=== PATIENT | male | born 1950 | race Caucasian/White ===

== ENCOUNTER 2018-12-19 08:41 | Inpatient (IN) | payer MEDICARE, OTHER ==
[2018-12-17 09:02] LABS: BASOPHILS # (AUTO) 0.1 X10'3 (0-0.2); BASOPHILS % (AUTO) 0.8 % (0-1); EOSINOPHILS # (AUTO) 0.1 X10'3 (0-0.9); HEMATOCRIT 43.9 % (42.0-52.0); LYMPHOCYTES # (AUTO) 1.8 X10'3 (1.1-4.8); LYMPHOCYTES % (AUTO) 20.3 % (21-51); MEAN CORPUSCULAR HEMOGLOBIN 30.3 PG (27.0-31.0); MEAN CORPUSCULAR HGB CONC 34.1 g/dL (33.0-36.5); MEAN CORPUSCULAR VOLUME 88.8 FL (78-98); MEAN PLATELET VOLUME 10.8 FL (7.4-10.4); MONOCYTES # (AUTO) 0.6 X10'3 (0-0.9); MONOCYTES % (AUTO) 6.5 % (2-12); NEUTROPHILS # (AUTO) 6.4 X10'3 (1.8-7.7); NEUTROPHILS % (AUTO) 71.4 % (42-75); PLATELET COUNT 204 X10'3 (140-440); RED BLOOD COUNT 4.94 X10'6 (4.70-6.10); RED CELL DISTRIBUTION WIDTH 14.3 % (11.5-14.5)
[2018-12-17 09:16] LABS: ALANINE AMINOTRANSFERASE 33 U/L (12-78); ALBUMIN 3.7 G/DL (3.4-5.0); ALBUMIN/GLOBULIN RATIO 0.9 (1.1-1.5); ALKALINE PHOSPHATASE 103 IU/L (46-116); ANION GAP 5 (8-16); ASPARTATE AMINO TRANSFERASE 15 U/L (10-37); BILIRUBIN,TOTAL 0.7 MG/DL (0.1-1.0); BLOOD UREA NITROGEN 11 MG/DL (7-18); BUN/CREATININE RATIO 15.1 (5.4-32.0); CALCIUM 8.8 MG/DL (8.5-10.1); CHLORIDE 104 MMOL/L (99-107); CREATININE 0.73 MG/DL (0.60-1.10); GLUCOSE 131 MG/DL (70-104); POTASSIUM 3.4 MMOL/L (3.5-5.1); SODIUM 138 MMOL/L (135-145); TOTAL CARBON DIOXIDE 29.5 MMOL/L (24-32); TOTAL PROTEIN 7.6 G/DL (6.4-8.2); eGFR > 90 ML/MIN
[2018-12-17 09:23] LABS: PARTIAL THROMBOPLASTIN TIME 30 SECONDS (22-32)
[~2018-12-19] VITALS: Ht 177.8 cm; Wt 109.0 kg
[2018-12-19] VITALS (16 sets, daily range): BP systolic 132–161; BP diastolic 59–85
[2018-12-19] MEDS ORDERED: MESSAGE TO PHARMACY PO ONE (09:05)
[2018-12-19] MEDS ORDERED: diphenhydrAMINE 25mg capsule PO PRN (09:05)
[2018-12-19] MEDS ORDERED: nitroGLYCERIN 0.4mg SUBLingual tab SL PRN (09:05)
[2018-12-19] MEDS ORDERED: LORazepam 0.5 MG tablet PO PRN (09:05)
[2018-12-19] MEDS ORDERED: insulin Lispro (HumaLOG) vial - multi-dose SQ SCH (09:05)
[2018-12-19] MEDS ORDERED: dextrose 50%-water 50ml dispensing syringe IV PRN ×2 (09:05)
[2018-12-19] MEDS ORDERED: dextrose ORAL solution 15 GM/59 ML bottle PO PRN ×2 (09:05)
[2018-12-19] MEDS ORDERED: glucagon, human recombinant 1mg kit SUBCUT PRN (09:05)
[2018-12-19] MEDS ORDERED: METF-436 PO (09:30)
[2018-12-19] MEDS ORDERED: ATOR20TA PO (09:30)
[2018-12-19] MEDS ORDERED: CYCL-1 PO (09:30)
[2018-12-19] MEDS ORDERED: EMPA10TA PO (09:30)
[2018-12-19] MEDS ORDERED: AMLO10TA4 PO (09:30)
[2018-12-19] MEDS ORDERED: VALA100027 PO (09:30)
[2018-12-19] MEDS ORDERED: IBUP-24 PO (09:30)
[2018-12-19] MEDS ORDERED: LISI1TAB32 PO (09:30)
[2018-12-19] MEDS: normal saline 1,000 ML IV SCH ×3 (09:45→19:30)
[2018-12-19] MEDS ORDERED: midazolam 2 mg/2 ml injection ONE ×2 (10:41→11:36)
[2018-12-19] MEDS ORDERED: fentaNYL/PF 50MCG/1 ML 2ML syringe ONE ×2 (10:41→11:36)
[2018-12-19] MEDS ORDERED: iohexol 350 MG/ML 50ML vial IV ONE (10:41)
[2018-12-19] MEDS ORDERED: iohexol 350MG/ML 100ml bottle IV ONE ×2 (10:41→11:44)
[2018-12-19] MEDS ORDERED: LIDOcaine 1% (10mg/ml)w/preservative injection 20ml MDV ONE (10:41)
[2018-12-19 10:42] LABS: HEMOGLOBIN A1C 6.8 % (4.5-6.2)
[2018-12-19] MEDS ORDERED: heparin 1,000unit/ml 10ml vial 10 ML ONE (11:23)
[2018-12-19] MEDS ORDERED: tirofiban 5mg in NS 100mL 100 ML IV ONE ×2 (11:23→12:40)
[2018-12-19] MEDS ORDERED: heparin 25,000 UNIT/250ml bag 250 ML IV ONE (11:28)
[2018-12-19] MEDS ORDERED: clopidogrel 300mg tablet ONE (12:15)
[2018-12-19] MEDS ORDERED: aspirin 325mg tablet ONE (12:21)
--- NOTE | 2018-12-19 12:34 | NUR ---
DC arterial line per MD order, pressure held for 15min, pt tolerated procedure well without discomfort. no s/s bleeding Addendum: 12/19/18 at 1443 by Juvenal Kang RN Wrong pt.
--- NOTE | 2018-12-19 12:45 | NUR ---
Patient in room CICU 2013. I have received report from microbiology lab assistant, RN and had the opportunity to ask questions and assume patient care.
[2018-12-19] MEDS ORDERED: cyclobenzaprine 10mg tablet PO PRN (13:15)
[2018-12-19] MEDS ORDERED: nitroGLYCERIN-Tridil 50MG/D5W 250 ML IV PRN (13:25)
[2018-12-19] MEDS ORDERED: heparin 25,000 UNIT/250ml bag 250 ML IV SCH (13:29)
[2018-12-19] MEDS ORDERED: heparin 10,000 units/1 ML INJ IV PRN (13:30)
[2018-12-19] MEDS ORDERED: morphine 10mg/ml inj. IV PRN (13:30)
[2018-12-19] MEDS ORDERED: proCHLORperazine 10 MG/2 ml inj IV PRN (13:30)
[2018-12-19] MEDS ORDERED: magnesium hydroxide 30ml (MOM) UD suspension PO PRN (13:30)
[2018-12-19] MEDS ORDERED: OXAZEpam 15mg capsule PO PRN (13:30)
[2018-12-19] MEDS: tirofiban 5mg in NS 100mL 100 ML IV SCH ×3 (13:35→22:40)
--- NOTE | 2018-12-19 14:30 | NUR ---
@1430 Dressing to R femoral sheath saturated in blood. No hematoma noted. Dsg canged, no active bleeding from site when dsg changed and reapplied sterile gauze in place secured with tape. No new bleeding from site since dressing change. Pulses normal see sheath assessment.
[2018-12-19] MEDS ORDERED: clopidogrel 300mg tablet PO SCH (17:30)
--- NOTE | 2018-12-19 18:24 | NUR ---
Problems reprioritized. Patient report given, questions answered & plan of care reviewed with BEAN Perez.
[2018-12-19] MEDS: HYDROchlorothiazide 12.5mg capsule PO SCH (19:41)
[2018-12-19] MEDS: lisinopril 10 MG tablet PO SCH (19:41)
[2018-12-19] MEDS: docusate sod 100mg capsule PO SCH (19:41)
[2018-12-19] MEDS: morphine 4 MG/ML inj SYRINge IV PRN (19:42)
[2018-12-19] MEDS: ibuprofen tablet 400 MG TABLET PO PRN (19:43)
[2018-12-19 19:54] LABS: BASOPHILS # (AUTO) 0.1 X10'3 (0-0.2); BASOPHILS % (AUTO) 0.7 % (0-1); EOSINOPHILS # (AUTO) 0.1 X10'3 (0-0.9); EOSINOPHILS % (AUTO) 1.3 % (0-6); HEMATOCRIT 41.8 % (42.0-52.0); HEMOGLOBIN 14.4 g/dl (14.0-17.9); LYMPHOCYTES # (AUTO) 2.8 X10'3 (1.1-4.8); LYMPHOCYTES % (AUTO) 26.8 % (21-51); MEAN CORPUSCULAR HEMOGLOBIN 30.6 PG (27.0-31.0); MEAN CORPUSCULAR HGB CONC 34.4 g/dL (33.0-36.5); MEAN PLATELET VOLUME 10.4 FL (7.4-10.4); MONOCYTES # (AUTO) 0.7 X10'3 (0-0.9); MONOCYTES % (AUTO) 6.6 % (2-12); NEUTROPHILS # (AUTO) 6.8 X10'3 (1.8-7.7); NEUTROPHILS % (AUTO) 64.6 % (42-75); PLATELET COUNT 199 X10'3 (140-440); RED CELL DISTRIBUTION WIDTH 14.3 % (11.5-14.5); WHITE BLOOD COUNT 10.5 X10'3 (4.5-11.0)
[2018-12-19] MEDS: insulin glargine (Lantus) pen - multi-dose SQ SCH (21:00)
[2018-12-19] MEDS: atorvastatin 20mg tablet PO SCH (21:49)
[2018-12-19] MEDS: cyclobenzaprine 10mg tablet PO SCH (21:49)
[2018-12-20] VITALS (25 sets, daily range): BP systolic 110–149; BP diastolic 49–79
[2018-12-20] MEDS: morphine 4 MG/ML inj SYRINge IV PRN ×4 (00:21→20:17)
[2018-12-20 01:04] LABS: BASOPHILS # (AUTO) 0.1 X10'3 (0-0.2); BASOPHILS % (AUTO) 1.1 % (0-1); EOSINOPHILS # (AUTO) 0.2 X10'3 (0-0.9); EOSINOPHILS % (AUTO) 1.8 % (0-6); HEMATOCRIT 42.3 % (42.0-52.0); HEMOGLOBIN 14.5 g/dl (14.0-17.9); LYMPHOCYTES # (AUTO) 2.1 X10'3 (1.1-4.8); LYMPHOCYTES % (AUTO) 22.1 % (21-51); MEAN CORPUSCULAR HEMOGLOBIN 30.4 PG (27.0-31.0); MEAN CORPUSCULAR HGB CONC 34.3 g/dL (33.0-36.5); MEAN CORPUSCULAR VOLUME 88.8 FL (78-98); MEAN PLATELET VOLUME 10.1 FL (7.4-10.4); MONOCYTES # (AUTO) 0.6 X10'3 (0-0.9); MONOCYTES % (AUTO) 6.6 % (2-12); NEUTROPHILS # (AUTO) 6.4 X10'3 (1.8-7.7); NEUTROPHILS % (AUTO) 68.4 % (42-75); PLATELET COUNT 196 X10'3 (140-440); RED BLOOD COUNT 4.76 X10'6 (4.70-6.10); RED CELL DISTRIBUTION WIDTH 14.2 % (11.5-14.5); WHITE BLOOD COUNT 9.4 X10'3 (4.5-11.0)
[2018-12-20 01:16] LABS: ALANINE AMINOTRANSFERASE 33 U/L (12-78); ALBUMIN 3.2 G/DL (3.4-5.0); ALBUMIN/GLOBULIN RATIO 0.9 (1.1-1.5); ALKALINE PHOSPHATASE 88 IU/L (46-116); ANION GAP 7 (8-16); ASPARTATE AMINO TRANSFERASE 16 U/L (10-37); BILIRUBIN,TOTAL 0.4 MG/DL (0.1-1.0); BLOOD UREA NITROGEN 15 MG/DL (7-18); BUN/CREATININE RATIO 20.8 (5.4-32.0); CHLORIDE 105 MMOL/L (99-107); CHOL/HDL RATIO 4.7 (0.00-4.99); CHOLESTEROL 132 MG/DL (0-200); CREATININE 0.72 MG/DL (0.60-1.10); GLUCOSE 139 MG/DL (70-104); HDL CHOLESTEROL 28 MG/DL (35-60); LDL CHOLESTEROL 77 MG/DL (50-100); POTASSIUM 3.2 MMOL/L (3.5-5.1); SODIUM 137 MMOL/L (135-145); TOTAL CARBON DIOXIDE 24.8 MMOL/L (24-32); TOTAL PROTEIN 6.7 G/DL (6.4-8.2); TRIGLYCERIDES 407 MG/DL (20-135); eGFR > 90 ML/MIN
[2018-12-20] MEDS: ibuprofen tablet 400 MG TABLET PO PRN ×2 (03:33→19:11)
[2018-12-20] MEDS: tirofiban 5mg in NS 100mL 100 ML IV SCH (04:08)
[2018-12-20] MEDS: lisinopril 10 MG tablet PO SCH ×2 (07:44→19:11)
[2018-12-20] MEDS: docusate sod 100mg capsule PO SCH ×2 (07:45→19:10)
[2018-12-20] MEDS: cyclobenzaprine 10mg tablet PO SCH ×3 (07:45→20:16)
[2018-12-20] MEDS: amLODIPine 5mg tablet PO SCH (07:45)
[2018-12-20] MEDS: HYDROchlorothiazide 12.5mg capsule PO SCH ×2 (07:45→19:10)
[2018-12-20] MEDS: aspirin 81mg tab.chew PO SCH (07:45)
[2018-12-20] MEDS: clopidogrel 75mg tablet PO SCH (07:45)
[2018-12-20] MEDS: metFORMIN 500mg tablet PO SCH ×2 (07:46→19:10)
[2018-12-20] MEDS: valacyclovir 500mg tablet PO SCH (07:46)
[2018-12-20] MEDS ORDERED: EMPAGLIFLOZIN PO SCH (08:00)
[2018-12-20] MEDS: normal saline 1,000 ML IV SCH (08:58)
[2018-12-20] MEDS ORDERED: LIDOcaine 1% (10mg/ml)w/preservative injection 20ml MDV ONE (09:38)
--- NOTE | 2018-12-20 09:56 | NUR ---
Perclose applied by laborer powerhouse.
--- NOTE | 2018-12-20 10:15 | NUR ---
Patient expresses urge to urinate but has difficulty while laying glat. Addendum: 12/20/18 at 1040 by Junior Ornelas RN flat.* Patient voided 50ml, and states it will be easier when he can get up. Will continue to monitor
[2018-12-20] MEDS ORDERED: potassium Cl 20 mEq SR tablet PO STA (10:53)
[2018-12-20] MEDS ORDERED: LISI-640 PO (14:45)
[2018-12-20] MEDS ORDERED: MULT-955 PO (14:46)
--- NOTE | 2018-12-20 17:14 | NUR ---
Dr Solis at bedside. Ok to transfer patient to PCU if we need a bed and they can discharge him tomorrow if he looks good. Discharge meds written in chart.
[2018-12-20] MEDS: atorvastatin 20mg tablet PO SCH (20:16)
[2018-12-20] MEDS: insulin glargine (Lantus) pen - multi-dose SQ SCH (20:16)
[2018-12-21] VITALS (12 sets, daily range): BP systolic 107–122; BP diastolic 51–76
[2018-12-21 06:18] LABS: BASOPHILS # (AUTO) 0.1 X10'3 (0-0.2); BASOPHILS % (AUTO) 0.7 % (0-1); EOSINOPHILS # (AUTO) 0.3 X10'3 (0-0.9); EOSINOPHILS % (AUTO) 2.7 % (0-6); HEMATOCRIT 41.8 % (42.0-52.0); HEMOGLOBIN 14.4 g/dl (14.0-17.9); LYMPHOCYTES # (AUTO) 1.7 X10'3 (1.1-4.8); LYMPHOCYTES % (AUTO) 18.2 % (21-51); MEAN CORPUSCULAR HEMOGLOBIN 30.3 PG (27.0-31.0); MEAN CORPUSCULAR HGB CONC 34.4 g/dL (33.0-36.5); MEAN CORPUSCULAR VOLUME 88.1 FL (78-98); MEAN PLATELET VOLUME 10.3 FL (7.4-10.4); MONOCYTES # (AUTO) 0.8 X10'3 (0-0.9); MONOCYTES % (AUTO) 8.8 % (2-12); NEUTROPHILS # (AUTO) 6.6 X10'3 (1.8-7.7); NEUTROPHILS % (AUTO) 69.6 % (42-75); PLATELET COUNT 176 X10'3 (140-440); RED BLOOD COUNT 4.74 X10'6 (4.70-6.10); RED CELL DISTRIBUTION WIDTH 14.4 % (11.5-14.5); WHITE BLOOD COUNT 9.5 X10'3 (4.5-11.0)
[2018-12-21 06:44] LABS: ALANINE AMINOTRANSFERASE 29 U/L (12-78); ALBUMIN 3.1 G/DL (3.4-5.0); ALBUMIN/GLOBULIN RATIO 0.9 (1.1-1.5); ALKALINE PHOSPHATASE 85 IU/L (46-116); ANION GAP 8 (8-16); ASPARTATE AMINO TRANSFERASE 14 U/L (10-37); BILIRUBIN,TOTAL 0.7 MG/DL (0.1-1.0); BLOOD UREA NITROGEN 18 MG/DL (7-18); CALCIUM 8.5 MG/DL (8.5-10.1); CHLORIDE 105 MMOL/L (99-107); GLUCOSE 119 MG/DL (70-104); POTASSIUM 3.4 MMOL/L (3.5-5.1); SODIUM 140 MMOL/L (135-145); TOTAL CARBON DIOXIDE 27.1 MMOL/L (24-32); TOTAL PROTEIN 6.6 G/DL (6.4-8.2); eGFR 84 ML/MIN
[2018-12-21] MEDS ORDERED: ATOR20TA66 PO ×2 (06:50→11:04)
[2018-12-21] MEDS ORDERED: CLOP75TA35 PO (06:50)
[2018-12-21] MEDS: amLODIPine 5mg tablet PO SCH (08:29)
[2018-12-21] MEDS: clopidogrel 75mg tablet PO SCH (08:29)
[2018-12-21] MEDS: docusate sod 100mg capsule PO SCH (08:30)
[2018-12-21] MEDS: lisinopril 10 MG tablet PO SCH (08:30)
[2018-12-21] MEDS: valacyclovir 500mg tablet PO SCH (08:30)
[2018-12-21] MEDS: metFORMIN 500mg tablet PO SCH (08:30)
[2018-12-21] MEDS: aspirin 81mg tab.chew PO SCH (08:30)
[2018-12-21] MEDS: HYDROchlorothiazide 12.5mg capsule PO SCH (08:30)
[2018-12-21] MEDS: cyclobenzaprine 10mg tablet PO SCH (08:30)
--- NOTE | 2018-12-21 11:57 | NUR ---
ambulated patient around the unit before disconnecting him from the monitor. Patient educated on all medications, warning signs and symptoms, and follow up care; all questions answered. IV removed with cannula intact. Patient declined a wheel chair and walked out with all belongings; girlfriend accompanied him and is driving him home
== END 2018-12-21 12:00 | disposition home or self-care (01) | DRG 247 ==
LOC: SSTAY O 08:41 → CICU 2S 13:36
PROVIDERS: ADMIT Internal Medicine Cardiovascular Disease; ATTEND Internal Medicine Critical Care Medicine
PROC: 027034Z Dilation of Coronary Artery, One Artery with Drug-eluting Intraluminal Device, Percutaneous Approach (ICD-10-PCS; principal; 2018-12-19)
PROC: 4A023N7 Measurement of Cardiac Sampling and Pressure, Left Heart, Percutaneous Approach (ICD-10-PCS; 2018-12-19)
PROC: B2111ZZ Fluoroscopy of Multiple Coronary Arteries using Low Osmolar Contrast (ICD-10-PCS; 2018-12-19)
PROC: B2151ZZ Fluoroscopy of Left Heart using Low Osmolar Contrast (ICD-10-PCS; 2018-12-19)
PROC: B41F1ZZ Fluoroscopy of Right Lower Extremity Arteries using Low Osmolar Contrast (ICD-10-PCS; 2018-12-19)
PROC: 5A09357 Assistance with Respiratory Ventilation, Less than 24 Consecutive Hours, Continuous Positive Airway Pressure (ICD-10-PCS; 2018-12-19)
DX: I20.0 Unstable angina (principal); E11.9 Type 2 diabetes mellitus without complications; E78.1 Pure hyperglyceridemia; I10 Essential (primary) hypertension; G89.4 Chronic pain syndrome; J44.9 Chronic obstructive pulmonary disease, unspecified; Z79.4 Long term (current) use of insulin; Z87.891 Personal history of nicotine dependence
CPT/HCPCS: 93458; C9600; 36415; 71046; 80053; 80061; 82948; 83036; 85025; 85610; 85730; 93005; 94660; 99152; 99153; A4620; A5120; A6258; A6449; C1725; C1760; C1769; C1874; G0378; J0780; J1644; J1815; J2001; J2250; J2270; J3010; J3246; J7030; J7040; Q0163; Q9967

== ENCOUNTER 2020-10-21 09:55 | Day surgery (SDC) | payer MEDICARE, OTHER ==
[2020-10-15 10:10] LABS: BASOPHILS # (AUTO) 0.1 X10'3 (0-0.2); BASOPHILS % (AUTO) 0.9 % (0-1); EOSINOPHILS # (AUTO) 0.1 X10'3 (0-0.9); EOSINOPHILS % (AUTO) 1.6 % (0-6); LYMPHOCYTES # (AUTO) 1.9 X10'3 (1.1-4.8); LYMPHOCYTES % (AUTO) 23.6 % (21-51); MEAN CORPUSCULAR HEMOGLOBIN 30.4 PG (27.0-31.0); MEAN CORPUSCULAR HGB CONC 33.9 g/dL (33.0-36.5); MEAN CORPUSCULAR VOLUME 89.6 FL (78-98); MEAN PLATELET VOLUME 9.7 FL (7.4-10.4); MONOCYTES # (AUTO) 0.5 X10'3 (0-0.9); MONOCYTES % (AUTO) 6.5 % (2-12); NEUTROPHILS # (AUTO) 5.3 X10'3 (1.8-7.7); NEUTROPHILS % (AUTO) 67.4 % (42-75); PRE OP HEMATOCRIT 47.1 % (42.0-52.0); PRE OP HEMOGLOBIN 15.9 g/dL (14.0-17.9); PRE OP PLATELET COUNT 194 X10'3 (140-440); RED BLOOD COUNT 5.25 X10'6 (4.70-6.10); RED CELL DISTRIBUTION WIDTH 14.3 % (11.5-14.5)
[2020-10-15 10:11] LABS: CLARITY,URINE CLEAR (Clear); COLOR,URINE YELLOW (Yellow); GLUCOSE, URINE >=1000 mg/dl (Neg); KETONES,URINE NEGATIVE (Neg); LEUKOCYTE ESTERASE ,URINE NEGATIVE (Neg); NITRITES, URINE NEGATIVE (Neg); OCCULT BLOOD,URINE NEGATIVE (Neg); PROTEIN,URINE NEGATIVE (Neg); UROBILINOGEN,URINE 0.2 E.U/dL (0.2-1.0)
[2020-10-15 10:23] LABS: UA COLLECTION TYPE NON-SPECIFIED
[2020-10-15 10:25] LABS: BACTERIA,URINE NONE SEEN /HPF (Neg); RBC,URINE NONE SEEN /HPF (0-2); SQUAMOUS EPITHELIAL CELL,UR FEW /LPF (FEW); WBC,URINE 0-4 /HPF (0-4)
[2020-10-15 10:28] LABS: ALBUMIN/GLOBULIN RATIO 1.1 (1.1-1.5); ALKALINE PHOSPHATASE 88 IU/L (46-116); BLOOD UREA NITROGEN 21 MG/DL (7-18); BUN/CREATININE RATIO 26.9 (5.4-32.0); CALCIUM 9.1 MG/DL (8.5-10.1); CHLORIDE 102 MMOL/L (99-107); CREATININE 0.78 MG/DL (0.60-1.10); PRE OP ALT 20 U/L (30-65); PRE OP ANION GAP 8 (8-16); PRE OP AST 16 U/L (10-37); PRE OP BILIRUB, TOTAL 0.6 MG/DL (0.0-1.0); PRE OP GLUCOSE 152 MG/DL (70-104); PRE OP POTASSIUM 3.6 MMOL/L (3.4-5.1); PRE OP SODIUM 140 MMOL/L (135-145); TOTAL CARBON DIOXIDE 30.2 MMOL/L (24-32); TOTAL PROTEIN 7.7 G/DL (6.4-8.2); eGFR > 90 ML/MIN
[2020-10-21] VITALS (9 sets, daily range): BP systolic 121–143; BP diastolic 69–80
[~2020-10-21] VITALS: Ht 177.8 cm; Wt 102.6 kg
[~2020-10-21 09:55] MED LIST: ACET-1015 PO; AMLO10TA4 PO; ASPI-1265 PO; ATOR40TA PO; CYCL-1 PO; EMPA10TA PO; FLO0.4C PO; LISI-640 PO; METF-436 PO; METF-900 PO; MULT-955 PO; VALA100031 PO; cefazolin/dext.iso 2gm/100ml IV ONE; famotidine 20mg tablet PO ONE; ringers solution, lacted 1,000 ML IV SCH
[2020-10-21] MEDS ORDERED: BUPIVAcaine/PF 2.5 mg/ml (0.25%) 30ml vial ONE (13:10)
[2020-10-21] MEDS ORDERED: LIDOcaine 1% W/epiNEPHrine 1:100,000 20ml vial ONE (13:11)
[2020-10-21] MEDS ORDERED: morphine 2 MG/ML inj. syringe IV PRN (13:30)
[2020-10-21] MEDS ORDERED: ringers solution, lacted 1,000 ML IV SCH (13:30)
[2020-10-21] MEDS ORDERED: meperidine/PF 25mg/ml syringe IV PRN ×3 (13:30)
[2020-10-21] MEDS ORDERED: morphine 4 MG/ML inj SYRINge IV PRN (13:30)
[2020-10-21] MEDS ORDERED: ondansetron/PF 4mg/2ml inj IV PRN (13:30)
[2020-10-21] MEDS ORDERED: proCHLORperazine 10 MG/2 ml inj IV PRN (13:30)
[2020-10-21] MEDS ORDERED: sevoflurane 250ml liquid IH ONE (13:41)
[2020-10-21] MEDS ORDERED: midazolam 1 mg/ML 2ml injection ONE (13:46)
[2020-10-21] MEDS ORDERED: fentaNYL/PF 50MCG/1 ML 2ML syringe ONE (13:46)
[2020-10-21] MEDS ORDERED: propofol inj 20 ML IV ONE (13:49)
--- NOTE | 2020-10-21 14:27 | NUR ---
Received from OR via , accompanied by Anesthesiologist DR VALDES and report given by Anesthesiolgist. PT PRESENTS WITH PIV 20 G LEFT WRIST, EXCISION LIPOMA OF LEFT SHOULDER. LR RUNNING AT 100 MLS/HR. VSS. Addendum: 10/21/20 at 1531 by Lori Roper RN, RN Amended: Links added.
--- NOTE | 2020-10-21 15:30 | NUR ---
PT TO [facility], REPORT GIVEN TO TAE DLE ANGEL. VSS, CARE TURNED OVER TO TAE DEL ANGEL. Addendum: 10/21/20 at 1536 by Lori Hathaway - BEAN RN Amended: Links added.
--- NOTE | 2020-10-21 16:17 | NUR ---
PT WAS DISCHARGED TO HOME SAFELY VIA W/C . HOME W/ [facility]. PT STATED UNDERSTANDING RE: ALL DC INSTRUCTIONS AND READINESS FOR DC TO HOME. PT TOLERATED JUICE AND CHEESE. ALL BELONGINGS W/ PT UPON DC TO HOME INCLUDING CELL PHONE, GLASSES, CLOTHES AND SHOES.
== END 2020-10-21 16:17 | disposition home or self-care (01) ==
LOC: PAS 09:55
PROVIDERS: ATTEND Surgery
DX: R22.32 Localized swelling, mass and lump, left upper limb (principal); D21.12 Benign neoplasm of connective and other soft tissue of left upper limb, including shoulder; E11.9 Type 2 diabetes mellitus without complications; G47.33 Obstructive sleep apnea (adult) (pediatric); I25.10 Atherosclerotic heart disease of native coronary artery without angina pectoris; I10 Essential (primary) hypertension; E66.9 Obesity, unspecified; Z68.32 Body mass index [BMI] 32.0-32.9, adult; I25.2 Old myocardial infarction; N40.0 Benign prostatic hyperplasia without lower urinary tract symptoms; Z98.41 Cataract extraction status, right eye; Z98.42 Cataract extraction status, left eye; Z79.899 Other long term (current) drug therapy; Z79.84 Long term (current) use of oral hypoglycemic drugs; Z79.82 Long term (current) use of aspirin; Z88.8 Allergy status to other drugs, medicaments and biological substances; Z88.5 Allergy status to narcotic agent; Z95.5 Presence of coronary angioplasty implant and graft; Z72.89 Other problems related to lifestyle
CPT/HCPCS: 24071; 36415; 80053; 81001; 82948; 85025; 88341; 88342; J2250; J2704; J3010; J3490; J7120; 88305; 88360; A4215; A4618; A7000